=== PATIENT | male | born 1960 | race Caucasian/White ===

== ENCOUNTER 2019-06-29 07:25 | Day surgery (SDC) | payer MEDICARE ==
[2019-06-29] VITALS (10 sets, daily range): BP systolic 112–160; BP diastolic 46–86
[~2019-06-29] VITALS: Ht 152.4 cm; Wt 65.0 kg
[~2019-06-29 07:25] MED LIST: CLIN150C8 PO; NICO-687 TD; OMEP20CA11 PO; QUET50TA PO
[2019-06-29] MEDS ORDERED: normal saline 1000ml 1,000 ML IV PRN (07:45)
[2019-06-29] MEDS ORDERED: albumin 25% 100mL bottle x 1 IV PRN (07:45)
[2019-06-29] MEDS ORDERED: THIA100T73 PO (08:16)
[2019-06-29] MEDS ORDERED: SPIR50TA5 PO (08:16)
[2019-06-29] MEDS ORDERED: IPRA3AMP31 IH (08:16)
[2019-06-29] MEDS ORDERED: SODI650T29 PO (08:16)
[2019-06-29] MEDS ORDERED: FLO0.4C PO (08:16)
[2019-06-29] MEDS ORDERED: ACET650T24 PO (08:16)
[2019-06-29] MEDS ORDERED: PANT40TA4 PO (08:16)
[2019-06-29] MEDS ORDERED: FOLI1TAB16 PO (08:16)
[2019-06-29] MEDS ORDERED: FURO-150 PO (08:16)
[2019-06-29] MEDS ORDERED: MIDO5TAB4 PO (08:16)
[2019-06-29] MEDS ORDERED: NICO-731 TOP (08:16)
[2019-06-29] MEDS ORDERED: LIDOcaine 1% 30ml preserv. free vial IJ STA (09:10)
[2019-06-29 09:13] LABS: BASOPHILS # (AUTO) 0.1 X10'3 (0-0.2); BASOPHILS % (AUTO) 0.8 % (0-1); EOSINOPHILS # (AUTO) 0.1 X10'3 (0-0.9); EOSINOPHILS % (AUTO) 1.5 % (0-6); HEMATOCRIT 33.4 % (42.0-52.0); HEMOGLOBIN 11.2 g/dl (14.0-17.9); LYMPHOCYTES # (AUTO) 1.6 X10'3 (1.1-4.8); LYMPHOCYTES % (AUTO) 20.6 % (21-51); MEAN CORPUSCULAR HEMOGLOBIN 32.5 PG (27.0-31.0); MEAN CORPUSCULAR HGB CONC 33.5 g/dL (33.0-36.5); MEAN CORPUSCULAR VOLUME 97.2 FL (78-98); MEAN PLATELET VOLUME 8.2 FL (7.4-10.4); MONOCYTES # (AUTO) 0.7 X10'3 (0-0.9); MONOCYTES % (AUTO) 8.7 % (2-12); NEUTROPHILS # (AUTO) 5.4 X10'3 (1.8-7.7); NEUTROPHILS % (AUTO) 68.4 % (42-75); PLATELET COUNT 128 X10'3 (140-440); RED BLOOD COUNT 3.44 X10'6 (4.70-6.10); RED CELL DISTRIBUTION WIDTH 17.8 % (11.5-14.5); WHITE BLOOD COUNT 7.9 X10'3 (4.5-11.0)
[2019-06-29 09:36] LABS: ALANINE AMINOTRANSFERASE 40 U/L (12-78); ALBUMIN 2.2 G/DL (3.4-5.0); ALBUMIN/GLOBULIN RATIO 0.7 (1.1-1.5); ALKALINE PHOSPHATASE 140 IU/L (46-116); ANION GAP 9 (8-16); ASPARTATE AMINO TRANSFERASE 50 U/L (10-37); BILIRUBIN,TOTAL 1.1 MG/DL (0.1-1.0); BLOOD UREA NITROGEN 28 MG/DL (7-18); BUN/CREATININE RATIO 19.2 (5.4-32.0); CHLORIDE 108 MMOL/L (99-107); CREATININE 1.46 MG/DL (0.60-1.10); GLUCOSE 97 MG/DL (70-104); POTASSIUM 4.2 MMOL/L (3.5-5.1); SODIUM 140 MMOL/L (135-145); TOTAL CARBON DIOXIDE 23.3 MMOL/L (24-32); TOTAL PROTEIN 5.4 G/DL (6.4-8.2); eGFR 50 ML/MIN
--- NOTE | 2019-06-29 10:12 | NUR ---
4.150 L OFF FROM PARACENTESIS. PT TOLERATED PRODEURE WELL
== END 2019-06-29 10:49 | disposition home or self-care (01) ==
LOC: SSTAY O 07:25
PROVIDERS: ATTEND Radiology Vascular & Interventional Radiology
DX: K70.31 Alcoholic cirrhosis of liver with ascites (principal); J44.9 Chronic obstructive pulmonary disease, unspecified; F43.10 Post-traumatic stress disorder, unspecified; E87.1 Hypo-osmolality and hyponatremia; K76.6 Portal hypertension; D69.6 Thrombocytopenia, unspecified; N40.0 Benign prostatic hyperplasia without lower urinary tract symptoms; K21.9 Gastro-esophageal reflux disease without esophagitis; Z88.5 Allergy status to narcotic agent; F17.290 Nicotine dependence, other tobacco product, uncomplicated; Z72.89 Other problems related to lifestyle; Z90.49 Acquired absence of other specified parts of digestive tract; Z79.899 Other long term (current) drug therapy; Z88.8 Allergy status to other drugs, medicaments and biological substances
CPT/HCPCS: 36415; 49083; 80053; 85025; 85610; C1729; J2001; J7030; P9047

== ENCOUNTER 2019-07-06 06:06 | Day surgery (SDC) | payer MEDICARE ==
[~2019-07-06] VITALS: Ht 170.2 cm; Wt 62.7 kg
[~2019-07-06 06:06] MED LIST changes: +ACET650T24 PO; -CLIN150C8 PO; +FLO0.4C PO; +FOLI1TAB16 PO; +FURO-150 PO; +IPRA3AMP31 IH; +MIDO5TAB4 PO; -NICO-687 TD; +NICO-731 TOP; -OMEP20CA11 PO; +PANT40TA4 PO; -QUET50TA PO; +SODI650T29 PO; +SPIR50TA5 PO; +THIA100T73 PO
[2019-07-06] MEDS ORDERED: normal saline 1000ml 1,000 ML IV PRN (06:45)
[2019-07-06] MEDS ORDERED: albumin 25% 100mL bottle x 1 IV PRN (06:45)
[2019-07-06 07:00] VITALS: BP 109/76
[2019-07-06 08:23] VITALS: BP 107/65
[2019-07-06 08:30] VITALS: BP 108/69
[2019-07-06 08:45] VITALS: BP 106/65
[2019-07-06 09:00] VITALS: BP 104/66
[2019-07-06 09:15] VITALS: BP 115/70
== END 2019-07-06 09:45 | disposition home or self-care (01) ==
LOC: SSTAY O 06:06
PROVIDERS: ATTEND Radiology Diagnostic Radiology
DX: R18.8 Other ascites (principal); K74.60 Unspecified cirrhosis of liver; F43.10 Post-traumatic stress disorder, unspecified; J44.9 Chronic obstructive pulmonary disease, unspecified; Z72.89 Other problems related to lifestyle; Z88.5 Allergy status to narcotic agent; Z79.899 Other long term (current) drug therapy
CPT/HCPCS: 49083; C1729; J7030; P9047

== ENCOUNTER 2019-07-14 09:25 | Day surgery (SDC) | payer MEDICARE ==
[2019-07-14] VITALS (9 sets, daily range): BP systolic 96–135; BP diastolic 43–71
[~2019-07-14] VITALS: Ht 170.2 cm; Wt 61.8 kg
[2019-07-14] MEDS ORDERED: normal saline 1000ml 1,000 ML IV PRN (10:10)
[2019-07-14] MEDS ORDERED: albumin 25% 100mL bottle x 1 IV PRN (10:10)
== END 2019-07-14 12:30 ==
LOC: SSTAY O 09:25
PROVIDERS: ATTEND Radiology Diagnostic Radiology
DX: R18.8 Other ascites (principal); K74.60 Unspecified cirrhosis of liver; J44.9 Chronic obstructive pulmonary disease, unspecified; F43.10 Post-traumatic stress disorder, unspecified; E87.1 Hypo-osmolality and hyponatremia; Z88.5 Allergy status to narcotic agent; Z72.89 Other problems related to lifestyle; Z79.899 Other long term (current) drug therapy
CPT/HCPCS: 49083; C1729; J7030; P9047